=== PATIENT | male | born 1950 | race Caucasian/White ===

== ENCOUNTER 2017-01-02 08:26 | Emergency (ER) | payer SELFPAY ==
[~2017-01-02] VITALS: Ht 177.8 cm; Wt 83.9 kg
[~2017-01-02 08:26] MED LIST: CYCL10TA9 PO; FAMO20TA5 PO; IBUP800T26 PO; OMEP40CA36 PO; PRD20T PO
--- OUTSIDE RECORDS SUMMARY | 2017-01-02 08:32 | XMS REPORT | Continuity of Care Document ---
Author Author [facility] Address Unknown Phone Unavailable Allergies Medications Problems Date Dx Coded Attending Type Code Diagnosis Diagnosed By 02/03/2009 DAR ETIENNE DDS 300.00 AN ANXIETY UNSPEC 02/24/2009 DAR ETIENNE DDS 724.2 LUMBAGO 03/11/2009 DAR ETIENNE DDS 311 MO DEPRESS NOS Procedures Results Encounters ACCT No. Visit Date/Time Discharge Status Pt. Type Provider Facility Loc./Unit Complaint [id number] 01/06/2010 11:00:00 01/06/2010 23: 59:59 CLS Outpatient DAR ETIENNE DDS
--- NOTE | 2017-01-02 08:39 | ED EENT ---
History of Present Illness General Chief Complaint: Dental Problems/Pain Stated Complaint: ABCESS TOOTH ON L SIDE TOP Source: patient Exam Limitations: no limitations History of Present Illness Time seen by provider: 08:35 Initial Comments Patient presents to ER with complaint of pain started yesterday evening after eating some rotisserie chicken he bit down on what he felt was a bone stabbed into a upper left molar and cause quite a bit of pain. Took some aspirin and this morning he woke up with some facial swelling and pain about 5 out of 10 and was improved with more aspirin. Patient reports he was not having any problems with that tooth before does have mild fillings. No problems with his vision double vision or blurry vision. No headache. No fever, chills, nausea, vomiting, diarrhea. He does not smoke or use any tobacco product. Allergies and Home Medications Allergies Coded Allergies: No Known Drug Allergies (Unverified , 03/22/14) Home Medications Amoxicillin/Potassium Clav 1 Each Tablet #14 1 EACH PO BID Prescribed by: SUKHDEEP FERRARO on 01/02/17 0844 Cyclobenzaprine Hcl 10 Mg Tablet #10 1 EACH PO Q8H PRN PRN PAIN Prescribed by: DAVI IQBAL on 03/22/14 1341 Famotidine 20 Mg Tablet #30 1 EACH PO BID Prescribed by: DAVI IQBAL on 03/22/14 1341 Hydrocodone/Acetaminophen 1 Each Tablet #14 1 EACH PO Q6H PRN PRN PAIN Prescribed by: SUKHDEEP FERRARO on 01/02/17 0844 Ibuprofen 800 Mg Tablet #20 800 MG PO q8h PRN PRN PAIN Prescribed by: DAVI IQBAL on 03/22/14 1341 Omeprazole 40 Mg Capsule.dr #30 40 MG PO DAILY Prescribed by: ADVI IQBAL on 03/22/14 1341 Prednisone 20 Mg Tab #10 40 MG PO DAILY Prescribed by: DAVI IQBAL on 03/22/14 1341 Review of Systems Constitutional: No chills, No diaphoresis, No fever, No malaise Eyes: Denies Blindness, Denies Blurred Vision, Denies Drainage, Denies Inflammation, Denies Pain, Denies Photophobia Ears: Denies Pain, Denies Clear Discharge Nose: denies congestion, denies pain Mouth: denies clots, loose teeth pain swellingdenies bloody discharge, denies purulent discharge, denies serosanguinous discharge Throat: denies pain, denies hoarse Respiratory: No cough, No phlegm Cardiovascular: No chest pain, No edema Gastrointestinal: No abdominal pain, No constipation, No diarrhea Skin: No pruritus, No rash Past Lunizdj-[id number] Hx Patient Social History Alcohol Use: Denies Use Recreational Drug Use: No Smoking Status: Never a Smoker Recent Foreign Travel: No Contact w/Someone Who Travel: No Surgeries HX Surgeries: Yes (hiatal hernia repair) Respiratory Hx Respiratory Disorders: No Cardiovascular Hx Cardiac Disorders: No Neurological Hx Neurological Disorders: No Visual Acuity : Eye Location: Bilaterally Vision Acuity Degree: 20/20 Physical Exam Vital Signs Vital Sign - Last 12Hours 01/02/17 08:30 Temp 97.8 Pulse 82 Resp 16 B/P 168/103 Pulse Ox 94 O2 Delivery Room Air General Appearance: WD/WN no apparent distress (History of) Eyes: bilateral eye EOMI, bilateral eye PERRL, bilateral eye normal inspection Ears: bilateral ear TM normal, bilateral ear auricle normal, bilateral ear canal normal Nose: normal inspectionNo sinus tenderness Mouth/Throat: pharynx normal dental tenderness (left upper molar is loose in the socket and tender to palpation with an intact amalgam filling and no gingival swelling. Mild facial erythema on the left side.) Neck: full range of motion supple Cardiovascular: regular rate, rhythm no edema Respiratory: chest non-tender lungs clear normal breath sounds no respiratory distress Neurologic/Psychiatric: alert oriented x 3 Skin: normal color warm/dry rash (mild erythema and edema left Buccal ) Progress/Results/Core Measures Results/Orders Vital Signs/I&O Vital Sign - Last 12Hours 01/02/17 08:30 Temp 97.8 Pulse 82 Resp 16 B/P 168/103 Pulse Ox 94 O2 Delivery Room Air Progress Note : Time: 08:50 Progress Note Loose tooth on examination from mastication of the bone. The patient's pain is under control with aspirin marginally so we will give him potent pain medicines cover him with Augmentin and allow him to follow-up tomorrow with a dentist. Departure Impression Impression: Primary Impression: Pain of tooth socket Disposition: 01 HOME, SELF-CARE Condition: Stable Departure-Patient Inst. Decision time for Depature: 08:40 Referrals: AMALIA BAL MD (PCP/Family) Primary Care Physician Patient Instructions: Dental Pain (DC) Add. Discharge Instructions: He has tooth pain from a loose tooth socket. He should see a dentist as soon as possible. We'll give you medicine for pain that may cause confusion and constipation. He should be careful about operating heavy machinery or driving into in a hot and affect you. If you have any constipation or straining have a bowel movement should be using 1 dose of MiraLAX daily. We'll also put on antibiotics please take to completion or until you relieved by your dentist. Return to the clinic if you're having new or worsening symptoms such as fever, nausea, vomiting or worsening facial swelling. All discharge instructions reviewed with patient and/or family. Voiced understanding. Scripts Hydrocodone/Acetaminophen ([place] 5-325 Tablet)1 Each Tablet1 Each PO Q6H PRN PAIN #14 TAB Ref 0 Prov:SUKHDEEP FERRARO 01/02/17 Amoxicillin/Potassium Clav (Augmentin 875-125 Tablet)1 Each Tablet1 Each PO BID #14 TAB Ref 0 Prov:SUKHDEEP FERRARO 01/02/17 SUKHDEEP FERRARO Jan 02, 2017 08:39
[2017-01-02] MEDS ORDERED: HYDR-757 PO (08:44)
[2017-01-02] MEDS ORDERED: AMOX-358 PO (08:44)
[2017-01-02 08:48] VITALS: BP 168/103
== END 2017-01-02 08:48 | disposition home or self-care (01) ==
LOC: EDUNIT# 08:26 → ER 08:28
DX: K08.89 Other specified disorders of teeth and supporting structures (principal)
CPT/HCPCS: 99282

== ENCOUNTER → 2023-07-27 | Outpatient (CLI) | payer SELFPAY ==
[~2023-07-27] MED LIST changes: +AMOX-358 PO; +HYDR-4226 PO
== END ==
LOC: CARD 13:34
PROVIDERS: ATTEND Pediatrics
DX: R00.1 Bradycardia, unspecified (principal)
CPT/HCPCS: 93242

== ENCOUNTER 2023-10-19 05:56 | Outpatient (CLI) | payer SELFPAY ==
[~2023-10-19] VITALS: Ht 177.8 cm; Wt 88.9 kg
[2023-10-19] MEDS ORDERED: OMEP40CA6 PO (11:49)
[2023-10-19] MEDS ORDERED: ASPI-999 PO (11:49)
[2023-10-19] MEDS ORDERED: FERR160T6 PO (11:49)
[2023-10-19] MEDS ORDERED: FAMO-356 PO (11:49)
[2023-10-19] MEDS ORDERED: LISI1TAB46 PO (11:49)
[2023-10-19] MEDS ORDERED: VITA-189 PO (11:49)
[2023-10-19] MEDS ORDERED: SUCR1TAB36 PO (11:49)
[2023-10-19] MEDS ORDERED: CHOL20002 PO (11:49)
== END 2023-10-19 11:51 | disposition home or self-care (01) ==
LOC: PREOP 05:56
PROVIDERS: ATTEND Surgery
DX: Z01.818 Encounter for other preprocedural examination (principal)